=== PATIENT | female | born 1940 | race Caucasian/White ===

== ENCOUNTER 2017-06-24 23:33 | Inpatient (IN) | payer OTHER ==
[~2017-06-24] VITALS: Ht 170.2 cm; Wt 66.6 kg
[~2017-06-24 23:33] MED LIST: CELEXA10 MG PO; FOLIC ACID1 MG PO; LIPITOR40 MG PO; SYNTHROID50 MCG PO; ZOCOR40 MG PO
[2017-06-25 11:26] VITALS: BP 144/62
[2017-06-25 22:53] VITALS: BP 104/56
[2017-06-26 00:06] VITALS: BP 109/57
[2017-06-26 04:06] VITALS: BP 115/61
[2017-06-26 06:51] LABS: HEMATOCRIT 33.4 % (36.0-46.0); HEMOGLOBIN 10.1 G/DL (11.9-15.5); MCHC 30.2 G/DL (30.0-36.0); MCV 86.1 FL (83-99); PLATELET COUNT 319 K/uL (156-360); RBC DIS.WIDTH-CV 16.2 % (11.8-14.6); RBC DIS.WIDTH-SD 50.5 % (39-53); RED BLOOD COUNT 3.88 M/uL (3.80-5.20); WHITE BLOOD COUNT 13.5 K/uL (4.1-10.2)
[2017-06-26 06:55] VITALS: BP 113/63
[2017-06-26 07:16] LABS: CHLORIDE 101 MEQ/L (99-109); CREATININE 0.7 MG/DL (0.6-1.3); GFR ESTIMATE (CALCULATED) > 59 mL/min/; GLUCOSE 189 mg/dL (70-99); MAGNESIUM 1.9 mg/dl (1.3-2.7); PHOSPHORUS 3.8 mg/dL (2.5-4.9); POTASSIUM 4.9 MEQ/L (3.7-5.4); SODIUM 135 MEQ/L (136-147); UREA NITROGEN (BUN) 14 mg/dL (9-23)
[2017-06-26 15:26] VITALS: BP 117/59
[2017-06-26 20:55] VITALS: BP 115/57
[2017-06-26 23:27] VITALS: BP 110/58
[2017-06-27 03:49] VITALS: BP 125/58
[2017-06-27 06:12] LABS: HEMATOCRIT 30.9 % (36.0-46.0); HEMOGLOBIN 9.2 G/DL (11.9-15.5); MCH 25.4 PG (29.0-34.0); MCHC 29.8 G/DL (30.0-36.0); MCV 85.4 FL (83-99); PLATELET COUNT 303 K/uL (156-360); RBC DIS.WIDTH-CV 16.3 % (11.8-14.6); RBC DIS.WIDTH-SD 51.1 % (39-53); RED BLOOD COUNT 3.62 M/uL (3.80-5.20); WHITE BLOOD COUNT 10.4 K/uL (4.1-10.2)
[2017-06-27 06:55] LABS: CHLORIDE 105 MEQ/L (99-109); CREATININE 0.6 MG/DL (0.6-1.3); GFR ESTIMATE (CALCULATED) > 59 mL/min/; GLUCOSE 162 mg/dL (70-99); MAGNESIUM 1.9 mg/dl (1.3-2.7); PHOSPHORUS 2.3 mg/dL (2.5-4.9); POTASSIUM 4.4 MEQ/L (3.7-5.4); SODIUM 137 MEQ/L (136-147); UREA NITROGEN (BUN) 9 mg/dL (9-23)
[2017-06-27 08:00] VITALS: BP 110/57
[2017-06-27 16:00] VITALS: BP 142/67
[2017-06-27] MEDS ORDERED: ULTRAM50 MG PO (17:04)
[2017-06-27 22:36] VITALS: BP 115/67
[2017-06-28 06:07] LABS: HEMOGLOBIN 9.4 G/DL (11.9-15.5); MCHC 30.3 G/DL (30.0-36.0); MCV 85.6 FL (83-99); PLATELET COUNT 300 K/uL (156-360); RBC DIS.WIDTH-CV 16.4 % (11.8-14.6); RBC DIS.WIDTH-SD 51.6 % (39-53); RED BLOOD COUNT 3.62 M/uL (3.80-5.20); WHITE BLOOD COUNT 9.3 K/uL (4.1-10.2)
[2017-06-28 06:31] LABS: CHLORIDE 108 MEQ/L (99-109); CREATININE 0.5 MG/DL (0.6-1.3); GFR ESTIMATE (CALCULATED) > 59 mL/min/; GLUCOSE 137 mg/dL (70-99); POTASSIUM 3.8 MEQ/L (3.7-5.4); SODIUM 140 MEQ/L (136-147); UREA NITROGEN (BUN) 6 mg/dL (9-23)
[2017-06-28 06:45] VITALS: BP 139/74
[2017-06-28 07:47] LABS: CARCINOEMBR.ANTIGEN 10.4 NG/ML
[2017-06-28 15:43] VITALS: BP 137/81
[2017-06-28 22:35] VITALS: BP 131/61
[2017-06-29 06:01] LABS: HEMATOCRIT 32.4 % (36.0-46.0); HEMOGLOBIN 9.8 G/DL (11.9-15.5); MCH 26.1 PG (29.0-34.0); MCHC 30.2 G/DL (30.0-36.0); MCV 86.4 FL (83-99); PLATELET COUNT 299 K/uL (156-360); RBC DIS.WIDTH-CV 16.3 % (11.8-14.6); RBC DIS.WIDTH-SD 51.6 % (39-53); RED BLOOD COUNT 3.75 M/uL (3.80-5.20); WHITE BLOOD COUNT 9.1 K/uL (4.1-10.2)
[2017-06-29 06:29] LABS: CHLORIDE 107 MEQ/L (99-109); CREATININE 0.5 MG/DL (0.6-1.3); GFR ESTIMATE (CALCULATED) > 59 mL/min/; GLUCOSE 116 mg/dL (70-99); MAGNESIUM 1.9 mg/dl (1.3-2.7); PHOSPHORUS 2.2 mg/dL (2.5-4.9); POTASSIUM 4.1 MEQ/L (3.7-5.4); SODIUM 140 MEQ/L (136-147); UREA NITROGEN (BUN) 4 mg/dL (9-23)
[2017-06-29 06:46] VITALS: BP 127/63
[2017-06-29 14:09] LABS: C DIFF TOXIN NEGATIVE (NEGATIVE)
[2017-06-29 15:27] VITALS: BP 153/70
[2017-06-29 23:59] VITALS: BP 139/71
[2017-06-30 05:34] LABS: HEMATOCRIT 33.2 % (36.0-46.0); HEMOGLOBIN 10.1 G/DL (11.9-15.5); MCH 25.9 PG (29.0-34.0); MCHC 30.4 G/DL (30.0-36.0); MCV 85.1 FL (83-99); PLATELET COUNT 348 K/uL (156-360); RBC DIS.WIDTH-CV 16.1 % (11.8-14.6); RBC DIS.WIDTH-SD 50.2 % (39-53); WHITE BLOOD COUNT 9.3 K/uL (4.1-10.2)
[2017-06-30 06:01] LABS: CHLORIDE 106 MEQ/L (99-109); CREATININE 0.6 MG/DL (0.6-1.3); GFR ESTIMATE (CALCULATED) > 59 mL/min/; GLUCOSE 116 mg/dL (70-99); POTASSIUM 4.5 MEQ/L (3.7-5.4); SODIUM 141 MEQ/L (136-147); UREA NITROGEN (BUN) 4 mg/dL (9-23)
[2017-06-30 08:15] VITALS: BP 142/67
[2017-06-30 16:13] VITALS: BP 133/69
[2017-07-01 00:24] VITALS: BP 168/74
[2017-07-01 06:02] LABS: MCH 25.9 PG (29.0-34.0); MCHC 30.3 G/DL (30.0-36.0); MCV 85.5 FL (83-99); PLATELET COUNT 367 K/uL (156-360); RBC DIS.WIDTH-CV 16.5 % (11.8-14.6); RBC DIS.WIDTH-SD 51.3 % (39-53); RED BLOOD COUNT 3.86 M/uL (3.80-5.20); WHITE BLOOD COUNT 10.4 K/uL (4.1-10.2)
[2017-07-01 06:29] LABS: CHLORIDE 101 MEQ/L (99-109); CREATININE 0.6 MG/DL (0.6-1.3); GFR ESTIMATE (CALCULATED) > 59 mL/min/; GLUCOSE 120 mg/dL (70-99); POTASSIUM 4.5 MEQ/L (3.7-5.4); SODIUM 140 MEQ/L (136-147); UREA NITROGEN (BUN) 6 mg/dL (9-23)
[2017-07-01 07:25] VITALS: BP 132/65
== END 2017-07-01 15:23 | disposition home or self-care (01) | DRG 330 ==
LOC: ENRESERV 23:33 → 2SOUTH 06-25 09:43 → 5EAST 06-25 10:46 → 2SOUTH 06-25 10:46 → ENRESERV 06-25 18:58 → 5EAST 06-25 22:01
PROVIDERS: Physician Assistant; Surgery
DX: C18.2 Malignant neoplasm of ascending colon (principal); K92.1 Melena; K66.0 Peritoneal adhesions (postprocedural) (postinfection); N83.9 Noninflammatory disorder of ovary, fallopian tube and broad ligament, unspecified; N85.2 Hypertrophy of uterus; E03.9 Hypothyroidism, unspecified; E78.00 Pure hypercholesterolemia, unspecified; F32.9 Major depressive disorder, single episode, unspecified; K57.90 Diverticulosis of intestine, part unspecified, without perforation or abscess without bleeding; Z86.010 Personal history of colon polyps; Z86.73 Personal history of transient ischemic attack (TIA), and cerebral infarction without residual deficits; Z90.710 Acquired absence of both cervix and uterus; Z80.1 Family history of malignant neoplasm of trachea, bronchus and lung; Z23 Encounter for immunization
CPT/HCPCS: 36415; 76857; 80048; 82378; 83735; 84100; 85025; 85027; 86304; 86850; 86900; 86901; 87493; 88307; 90686; 93005; 94799; 97530 GO; C1751; J0690; J1170; J1335; J1885; J2001; J2405; J2765; J2795; J3010; J3475; J3480; J7050

== ENCOUNTER 2017-08-28 22:03 | Inpatient (IN) | payer OTHER ==
[~2017-08-28] VITALS: Ht 166.4 cm; Wt 66.0 kg
[~2017-08-28 22:03] MED LIST changes: +LIPITOR20 MG PO; +TRAMADOL HCL50 MG PO; +ULTRAM50 MG PO
[2017-08-29] MEDS ORDERED: CEFTIN250 MG PO ×2 (11:24→11:35)
[2017-08-29 17:30] VITALS: BP 164/71
[2017-08-29 19:25] VITALS: BP 114/59
[2017-08-29 20:03] LABS: HEMATOCRIT 37.4 % (36.0-46.0); HEMOGLOBIN 11.4 G/DL (11.9-15.5); MCH 26.3 PG (29.0-34.0); MCHC 30.5 G/DL (30.0-36.0); MCV 86.4 FL (83-99); PLATELET COUNT 291 K/uL (156-360); RBC DIS.WIDTH-CV 15.4 % (11.8-14.6); RBC DIS.WIDTH-SD 48.5 % (39-53); RED BLOOD COUNT 4.33 M/uL (3.80-5.20); WHITE BLOOD COUNT 14.8 K/uL (4.1-10.2)
[2017-08-29 20:18] LABS: CHLORIDE 107 MEQ/L (99-109); CREATININE 0.7 MG/DL (0.6-1.3); GFR ESTIMATE (CALCULATED) > 59 mL/min/; GLUCOSE 289 mg/dL (70-99); POTASSIUM 4.4 MEQ/L (3.7-5.4); SODIUM 136 MEQ/L (136-147); UREA NITROGEN (BUN) 8 mg/dL (9-23)
[2017-08-29 23:45] VITALS: BP 106/52
[2017-08-29 23:50] VITALS: BP 100/55
[2017-08-30 03:21] VITALS: BP 105/55
[2017-08-30 06:14] LABS: HEMOGLOBIN 10.4 G/DL (11.9-15.5); MCH 25.8 PG (29.0-34.0); MCHC 30.6 G/DL (30.0-36.0); MCV 84.4 FL (83-99); PLATELET COUNT 277 K/uL (156-360); RBC DIS.WIDTH-CV 15.6 % (11.8-14.6); RBC DIS.WIDTH-SD 47.8 % (39-53); RED BLOOD COUNT 4.03 M/uL (3.80-5.20); WHITE BLOOD COUNT 12.9 K/uL (4.1-10.2)
[2017-08-30 06:25] LABS: CHLORIDE 105 MEQ/L (99-109); CREATININE 0.6 MG/DL (0.6-1.3); GFR ESTIMATE (CALCULATED) > 59 mL/min/; GLUCOSE 192 mg/dL (70-99); POTASSIUM 4.3 MEQ/L (3.7-5.4); SODIUM 136 MEQ/L (136-147); UREA NITROGEN (BUN) 7 mg/dL (9-23)
[2017-08-30 07:24] VITALS: BP 121/59
[2017-08-30 15:44] VITALS: BP 120/59
[2017-08-30 19:39] VITALS: BP 134/63
[2017-08-30 23:34] VITALS: BP 133/66
[2017-08-31 04:04] VITALS: BP 119/78
[2017-08-31 05:18] LABS: HEMATOCRIT 33.5 % (36.0-46.0); HEMOGLOBIN 10.5 G/DL (11.9-15.5); MCH 26.4 PG (29.0-34.0); MCHC 31.3 G/DL (30.0-36.0); MCV 84.2 FL (83-99); PLATELET COUNT 253 K/uL (156-360); RBC DIS.WIDTH-CV 15.9 % (11.8-14.6); RBC DIS.WIDTH-SD 47.8 % (39-53); RED BLOOD COUNT 3.98 M/uL (3.80-5.20); WHITE BLOOD COUNT 14.8 K/uL (4.1-10.2)
[2017-08-31 05:41] LABS: CHLORIDE 106 MEQ/L (99-109); CREATININE 0.6 MG/DL (0.6-1.3); GFR ESTIMATE (CALCULATED) > 59 mL/min/; GLUCOSE 145 mg/dL (70-99); POTASSIUM 3.9 MEQ/L (3.7-5.4); SODIUM 140 MEQ/L (136-147); UREA NITROGEN (BUN) 7 mg/dL (9-23)
[2017-08-31 07:17] VITALS: BP 156/73
[2017-08-31] MEDS ORDERED: TRAMADOL HCL50 MG PO (09:11)
== END 2017-08-31 10:30 | disposition home or self-care (01) | DRG 738 ==
LOC: ENRESERV 22:03 → 2SOUTH 08-29 08:40 → CANRESERV 08-29 14:48 → ENRESERV 08-29 14:48 → 2SOUTH 08-29 17:02 → 2EAST 08-29 17:05 → ENPENDDIS 08-31 09:20 → 2EAST 08-31 10:30
PROVIDERS: Obstetrics & Gynecology Gynecologic Oncology
PROC: 07BC0ZX Excision of Pelvis Lymphatic, Open Approach, Diagnostic (ICD-10-PCS; principal; 2017-08-29)
PROC: 0UT90ZZ Resection of Uterus, Open Approach (ICD-10-PCS; principal; 2017-08-29)
PROC: 0TN70ZZ Release Left Ureter, Open Approach (ICD-10-PCS; principal; 2017-08-29)
PROC: 0UT20ZZ Resection of Bilateral Ovaries, Open Approach (ICD-10-PCS; principal; 2017-08-29)
PROC: 30233N1 Transfusion of Nonautologous Red Blood Cells into Peripheral Vein, Percutaneous Approach (ICD-10-PCS; principal; 2017-08-29)
PROC: 0UT70ZZ Resection of Bilateral Fallopian Tubes, Open Approach (ICD-10-PCS; principal; 2017-08-29)
PROC: 0WBF0ZZ Excision of Abdominal Wall, Open Approach (ICD-10-PCS; principal; 2017-08-29)
DX: C56.2 Malignant neoplasm of left ovary (principal); N13.5 Crossing vessel and stricture of ureter without hydronephrosis; E03.9 Hypothyroidism, unspecified; Z86.73 Personal history of transient ischemic attack (TIA), and cerebral infarction without residual deficits; Z90.49 Acquired absence of other specified parts of digestive tract; Z88.0 Allergy status to penicillin; Z79.82 Long term (current) use of aspirin
CPT/HCPCS: 36415; 80048; 85027; 86850; 86900; 86901; 86920; 88108; 88307; 88341 TC; 88342 TC; J1100; J1580; J1650; J2405; J2710; J2765; J2795; J7050; J7643; P9016; Q0175; S0030